=== PATIENT | male | born 1995 | race Hispanic/Latino ===

== ENCOUNTER 2016-06-22 17:49 | Emergency (ER) | payer OTHER ==
[~2016-06-22] VITALS: Ht 177.8 cm; Wt 77.1 kg
[2016-06-22 18:09] VITALS: BP 109/69
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
[2016-06-22] MEDS ORDERED: CYCLOBENZAPRINE10 M1 PO (20:25)
[2016-06-22] MEDS ORDERED: IBUPROFEN800 M1 PO (20:25)
== END 2016-06-22 20:27 | disposition left against medical advice (07) ==
LOC: ERH 17:49
DX: M54.2 Cervicalgia (principal); V89.2XXA Person injured in unspecified motor-vehicle accident, traffic, initial encounter; Y93.9 Activity, unspecified; Y92.488 Other paved roadways as the place of occurrence of the external cause